=== PATIENT | female | born 1990 | race Caucasian/White ===

== ENCOUNTER 2024-03-10 00:14 | Day surgery (SDC) | payer MEDICAID, OTHER ==
[2024-03-10 01:13] VITALS: BMI 28.9
[2024-03-10 01:29] LABS: Fetal Membranes Rupture No Membranes Rupture (No Rupture)
[2024-03-10 03:30] LABS: Bilirubin Neg (Negative); Blood, Urine Negative (Negative); Clarity Clear (Clear); Glucose, Urine (Dipstick) Normal (Negative); Ketone, Urine Negative (Negative); Leukocyte 500 (Negative); Nitrite Positive (Negative); Protein, Urine (Dipstick) Negative (Neg-Trace); Urobilinogen Normal mg/dL (Less than 2)
[2024-03-10] MEDS ORDERED: hydrALAZINE 20 MG/ML VIAL SLOW IVP PRN (03:41)
[2024-03-10] MEDS ORDERED: Lactated Ringer's 500 ML IV SCH (04:00)
[2024-03-10] MEDS: Acetaminophen 500 MG TAB PO SCH (04:25)
[2024-03-10 05:13] LABS: Bacteria/HPF 4+ HPF (None Seen); RBC/HPF 0-3 HPF (0-3); Squamous Epithelial 0-3 HPF (0-3)
== END 2024-03-10 05:16 | disposition home or self-care (01) ==
LOC: CSHLD/OP 00:14
PROVIDERS: ATTEND Family Medicine
DX: O47.03 False labor before 37 completed weeks of gestation, third trimester (principal); O09.43 Supervision of pregnancy with grand multiparity, third trimester; O99.013 Anemia complicating pregnancy, third trimester; O99.283 Endocrine, nutritional and metabolic diseases complicating pregnancy, third trimester; E03.9 Hypothyroidism, unspecified; O23.593 Infection of other part of genital tract in pregnancy, third trimester; B96.89 Other specified bacterial agents as the cause of diseases classified elsewhere; A59.00 Urogenital trichomoniasis, unspecified; Z3A.36 36 weeks gestation of pregnancy; Z90.89 Acquired absence of other organs; Z88.1 Allergy status to other antibiotic agents; Z79.899 Other long term (current) drug therapy
CPT/HCPCS: 81003; 81015; 84112; 87480; 87510; 87660; 96360; 99285

== ENCOUNTER 2024-03-27 02:30 | Inpatient (IN) | payer OTHER ==
[2024-03-27 02:48] VITALS: BMI 29.4
[2024-03-27] MEDS ORDERED: fentaNYL 50 mcg/mL 1 mL Vial SLOW IVP PRN (03:42)
[2024-03-27] MEDS ORDERED: Tranexamic Acid 1,000 MG/10 ML VIAL IVP PRN (03:43)
[2024-03-27] MEDS ORDERED: Zolpidem Tartrate 5 MG TAB PO PRN (03:45)
[2024-03-27] MEDS ORDERED: Oxytocin 30 units/NS 500 ML 500 ML IVPB SCH (03:45)
[2024-03-27] MEDS ORDERED: Promethazine HCl 25 MG/ML VIAL IM PRN ×2 (03:45→04:30)
[2024-03-27] MEDS ORDERED: Lidocaine 1% (PF) 30 ML VIAL SC PRN (03:45)
[2024-03-27] MEDS ORDERED: Carboprost 250 MCG/ML AMP IM PRN (03:45)
[2024-03-27] MEDS ORDERED: Methylergonovine 0.2 MG/ML VIAL IM PRN (03:45)
[2024-03-27] MEDS ORDERED: hydrALAZINE 20 MG/ML VIAL SLOW IVP PRN ×2 (03:45→09:45)
[2024-03-27] MEDS ORDERED: Ondansetron PF 4 MG/2 ML Vial IVP PRN ×3 (03:45→09:45)
[2024-03-27] MEDS ORDERED: Diphenoxylate HCl/Atropine Tablet PO PRN (03:45)
[2024-03-27 03:58] LABS: Hematocrit 26.8 % (34.9-44.5); Hemoglobin 7.4 g/dL (12.0-15.5); Mean Corpuscular HGB CONC 27.6 g/dL (32.0-36.0); Mean Corpuscular Hemoglobin 18.9 pg (27.0-33.0); Mean Corpuscular Volume 68.4 fL (81.6-98.3); Platelet Count 291 10x3/uL (150-450); Red Blood Cell (RBC) Count 3.92 10x6/uL (3.90-5.03); White Blood Cell (WBC) Count 12.28 10x3/uL (3.5-10.5)
[2024-03-27 04:09] LABS: Syphilis Antibody Nonreactive (Nonreactive); Syphilis Antibody Index 0.04 S/CO (<1.00 Non-Reactive)
[2024-03-27 04:11] LABS: HBsAg Index 0.25 S/CO (0-0.99); Hep B Surf Ag - L&D Non-Reactive S/CO (NonReactive)
[2024-03-27] MEDS: Lactated Ringer's 1,000 ML IV SCH (04:15)
[2024-03-27] MEDS: fentaNYL/Ropivacaine Epidural 100 ML ONE (04:15)
[2024-03-27] MEDS ORDERED: Communication Order-Pharmacy FS SCH (04:30)
[2024-03-27] MEDS ORDERED: fentaNYL 2 mcg/Ropivacaine 0.2% Epidural 100 ML CADD EPIDURAL SCH (04:30)
[2024-03-27] MEDS ORDERED: Moisturizing Cream (Eucerin) 113 GM JAR TOP PRN (04:30)
[2024-03-27] MEDS ORDERED: Lactated Ringer's 500 ML IV PRN (04:30)
[2024-03-27] MEDS ORDERED: Naloxone HCl 0.4 mg/ml Vial IVP PRN ×2 (04:30)
[2024-03-27] MEDS ORDERED: diphenhydrAMINE 50 MG/ML VIAL IVP PRN (04:30)
[2024-03-27] MEDS: ePHEDrine Sulfate 50 MG/10 ML VIAL SLOW IVP PRN (04:54)
[2024-03-27] MEDS: Misoprostol 200 MCG TAB RC PRN (09:33)
[2024-03-27] MEDS: Acetaminophen 325 MG TAB PO PRN (09:41)
[2024-03-27] MEDS ORDERED: HYDROcodone/Acetaminophen 5/325 mg Tablet PO PRN (09:45)
[2024-03-27] MEDS ORDERED: diphenhydrAMINE 25 MG CAP PO PRN (09:45)
[2024-03-27] MEDS ORDERED: Bisacodyl 10 MG SUPP PR PRN (09:45)
[2024-03-27] MEDS ORDERED: Benzocaine-Menthol 82.5 ML CAN TOP PRN (09:45)
[2024-03-27] MEDS ORDERED: Milk Of Magnesia 30 ML UDCUP PO PRN (09:45)
[2024-03-27] MEDS ORDERED: Lanolin Ointment 7 GM TUBE TOP PRN (09:45)
[2024-03-27] MEDS: Boostrix 0.5 ML (Tdap) VIAL (>/=7 yrs of age) IM ONE (09:59)
[2024-03-27] MEDS: Prenatal Vitamin 1 TAB PO SCH (10:00)
[2024-03-27] MEDS: Docusate 100 MG CAP PO SCH ×2 (10:00→21:56)
[2024-03-27] MEDS: Ibuprofen 800 MG TAB PO SCH (13:13)
[2024-03-27] MEDS ORDERED: ePHEDrine Sulfate 50 MG/10 ML VIAL ONE (16:00)
[2024-03-27] MEDS ORDERED: Bupivacaine HCl 0.5%/Epinephrine 1:200,000/PF 30 ml Vial ONE (16:00)
[2024-03-27] MEDS ORDERED: Bupivacaine 0.25% HCL 30 ML VIAL ONE (16:00)
[2024-03-27] MEDS: Ferrous Sulfate 325 MG TAB PO SCH (17:05)
[2024-03-28 07:57] VITALS: BP 99/58; TEMP 98.2
[2024-03-28] MEDS: Prenatal Vitamin 1 TAB PO SCH (11:15)
== END 2024-03-28 19:20 | disposition home or self-care (01) | DRG 807 ==
LOC: CSHLD/OP 02:30 → CSHLD 03:22 → CSHPP 09:55
PROVIDERS: ADMIT Family Medicine; ATTEND Family Medicine
PROC: 10E0XZZ Delivery of Products of Conception, External Approach (ICD-10-PCS; principal; 2024-03-27)
DX: O99.284 Endocrine, nutritional and metabolic diseases complicating childbirth (principal); Z37.0 Single live birth; E89.0 Postprocedural hypothyroidism; Z3A.38 38 weeks gestation of pregnancy; Z79.899 Other long term (current) drug therapy; Z79.890 Hormone replacement therapy; Z88.1 Allergy status to other antibiotic agents
CPT/HCPCS: 51702; 85027; 86780; 86850; 86900; 86901; 87340; 99285; J0665; J7120